=== PATIENT | female | born 1985 | race Caucasian/White ===

== ENCOUNTER 2017-02-28 07:53 | Inpatient (IN) | payer BC ==
[2017-02-28] MEDS ORDERED: Sodium Chloride 0.9% 2.5 ML Syringe FLUSH PRN (11:43)
[2017-02-28] MEDS ORDERED: Water For Irrigation,Sterile 1,000 ML Container IRR PRN (11:43)
[2017-02-28] MEDS ORDERED: Misoprostol 200 MCG Tab PO PRN (11:43)
[2017-02-28] MEDS ORDERED: Lidocaine 1% 50 ML MDV INJECT PRN (11:43)
[2017-02-28] MEDS ORDERED: Methylergonovine 0.2 MG/1 ML Amp IM PRN (11:43)
[2017-02-28] MEDS ORDERED: Sodium Chloride 0.9% 10 ML Syringe FLUSH PRN (11:43)
[2017-02-28] MEDS ORDERED: Nalbuphine 10 MG/1 ML Vial IVPUSH PRN (11:43)
[2017-02-28] MEDS ORDERED: Butorphanol 1 MG/ML SDV IVPUSH PRN (11:43)
[2017-02-28] MEDS ORDERED: Carboprost Tromethamine 250 MCG/1 ML Amp IM PRN (11:43)
[2017-02-28] MEDS ORDERED: Oxytocin/Lactated Ringers 30 UNIT/500 ML BAG IV SCH (11:45)
[2017-02-28] MEDS ORDERED: fentaNYL 100 MCG/2 ML SDV ONE (12:00)
[2017-02-28] MEDS: Lactated Ringers 1,000 ML IV SCH ×2 (12:00→12:44)
[2017-02-28] MEDS ORDERED: Ropivacaine 0.2% 2 MG/ML 20 ML SDV ONE (12:01)
--- NOTE | 2017-02-28 12:41 | PCM.PREANE ---
Preanesthetic Assessment - Anesthesia/Transfusion/Family Hx Anesthesia History: No Prior Anesthesia Family History of Anesthesia Reaction: No (Mom had trouble waking up) Transfusion History: No Prior Transfusion(s) - Review of Systems General: No Symptoms Pulmonary: No Symptoms Cardiovascular: No Symptoms Gastrointestinal: No symptoms Neurological: No Symptoms Other: Reports: None - Physical Assessment Height: 1.57 m Weight: 81.647 kg ASA Class: 2 Mental Status: Alert & Oriented x3 Airway Class: Mallampati = 2 Dentition: Reports: Normal Dentition ROM/Head Extension: Full - Lab Values: Laboratory Last Values WBC 13.72 K/uL (4.0-11.0) H 02/28/17 11:55 RBC 4.44 M/uL (4.30-5.90) 02/28/17 11:55 Hgb 12.1 g/dL (12.0-16.0) 02/28/17 11:55 Hct 35.8 % (36.0-46.0) L 02/28/17 11:55 MCV 80.6 fL (80.0-98.0) 02/28/17 11:55 MCH 27.3 pg (27.0-32.0) 02/28/17 11:55 MCHC 33.8 g/dL (31.0-37.0) 02/28/17 11:55 RDW Std Deviation 43.9 fl (28.0-62.0) 02/28/17 11:55 RDW Coeff of Matilda 15 % (11.0-15.0) 02/28/17 11:55 Plt Count 137 K/uL (150-400) L 02/28/17 11:55 MPV 11.40 fL (7.40-12.00) 02/28/17 11:55 Nucleated RBC % 0.0 /100WBC 02/28/17 11:55 Nucleated RBCs # 0 K/uL 02/28/17 11:55 Urine Color YELLOW 02/28/17 08:20 Urine Appearance CLEAR 02/28/17 08:20 Urine pH 7.0 (5.0-8.0) 02/28/17 08:20 Ur Specific [place] 1.025 (1.001-1.035) 02/28/17 08:20 Urine Protein TRACE mg/dL (NEGATIVE) 02/28/17 08:20 Urine Glucose (UA) NEGATIVE mg/dL (NEGATIVE) 02/28/17 08:20 Urine Ketones NEGATIVE mg/dL (NEGATIVE) 02/28/17 08:20 Urine Occult Blood LARGE (NEGATIVE) H 02/28/17 08:20 Urine Nitrite NEGATIVE (NEGATIVE) 02/28/17 08:20 Urine Bilirubin NEGATIVE (NEGATIVE) 02/28/17 08:20 Urine Urobilinogen 0.2 EU/dL (<2.0) 02/28/17 08:20 Ur Leukocyte Esterase MODERATE (NEGATIVE) 02/28/17 08:20 - Allergies Allergies/Adverse Reactions: Allergies Allergy/AdvReac Type Severity Reaction Status Date / Time Penicillins Allergy Bronchospas Verified 09/28/14 11:18 ms - Acknowledgements Anesthesia Type Planned: Epidural Pt an Appropriate Candidate for the Planned Anesthesia: Yes Alternatives and Risks of Anesthesia Discussed w Pt/Guardian: Yes Pt/Guardian Understands and Agrees with Anesthesia Plan: Yes PreAnesthesia Questionnaire - Past Health History Medical/Surgical History: Denies Medical/Surgical History [employer] History: Reports: Psychiatric History: Reports: Other (See Below) Other Psychiatric History: post depression Hematologic History: Reports: None (Denies any personal or family hx of bleeding or clotting problems) - Past Surgical History HEENT Surgical History: Reports: Oral Surgery ([place] teeth) - SUBSTANCE USE Smoking Status *Q: Never Smoker Second Hand Smoke Exposure: No Recreational Drug Use History: No - CURRENT (IN HOUSE) MEDS Current Meds: Current Medications Butorphanol Tartrate (Stadol) 1 mg IVPUSH Q1H PRN PRN Reason: Pain Carboprost Tromethamine (Hemabate Ds) 250 mcg IM ASDIRECTED PRN PRN Reason: Post Hemorrhage Lactated Ringer's (Ringers, Lactated) 1,000 mls @ 150 mls/hr IV ASDIRECTED KRISHNA Last Admin: 02/28/17 12:00 Dose: 150 mls/hr Oxytocin/Lactated Ringer's (Pitocin In Lr 30 Units/500 Ml) 30 unit in 500 mls @ 500 mls/hr IV TITRATE KRISHNA; 500 MUNITS/MIN PRN Reason: Protocol Stop: 02/28/17 12:44 Lidocaine HCl (Xylocaine 1%) 50 ml INJECT .ONCE PRN PRN Reason: Laceration repair Methylergonovine Maleate (Methergine) 0.2 mg IM ASDIRECTED PRN PRN Reason: Post Hemorrhage Misoprostol (Cytotec) 200 mcg PO .ONCE PRN PRN Reason: Post Hemorrhage Nalbuphine HCl (Nubain) 10 mg IVPUSH Q1H PRN PRN Reason: Pain (severe 7-10) Stop: 02/28/17 13:44 Sodium Chloride (Saline Flush) 10 ml FLUSH ASDIRECTED PRN PRN Reason: Keep Vein Open Sodium Chloride (Saline Flush) 2.5 ml FLUSH ASDIRECTED PRN PRN Reason: Keep Vein Open Sterile Water (Sterile Water For Irrigation) 1,000 ml IRR ASDIRECTED PRN PRN Reason: delivery Discontinued Medications Fentanyl (Sublimaze) Confirm Administered Dose 100 mcg .ROUTE .STK-MED ONE Stop: 02/28/17 12:01 Ropivacaine/Fentanyl/NS (Fentanyl 2 Mcg-Ropiv 0.2%-Ns) Confirm Administered Dose 100 mls @ as directed .ROUTE .STK-MED ONE Stop: 02/28/17 12:01 Ropivacaine (Naropin 0.2%) Confirm Administered Dose 20 ml .ROUTE .STK-MED ONE Stop: 02/28/17 12:02
[2017-02-28] MEDS ORDERED: Oxytocin/Lactated Ringers 30 UNIT/500 ML BAG ONE (15:23)
[2017-02-28] MEDS ORDERED: Docusate Sodium 100 MG Cap PO PRN (17:39)
[2017-02-28] MEDS ORDERED: oxyCODONE 5 MG Tab PO PRN (17:39)
[2017-02-28] MEDS ORDERED: Lanolin 100% Cream 7 GM Tube TOP PRN (17:39)
[2017-02-28] MEDS ORDERED: Benzocaine/Menthol 20%-0.5% Spray 78 GM Cannister TOP PRN (17:39)
[2017-02-28] MEDS ORDERED: Bisacodyl 10 MG Supp RECTAL PRN (17:39)
[2017-02-28] MEDS ORDERED: Witch Hazel Medicated Pads 40/Jar TOP PRN (17:39)
[2017-02-28] MEDS ORDERED: Acetaminophen 500 MG Tab PO PRN (17:39)
--- NOTE | 2017-02-28 22:40 | OR ---
SURGEON: Fanny Mehta DATE OF PROCEDURE: 02/28/2017 PREDELIVERY HISTORY: This is a 31-year-old, G2, P1, who presented to Labor and Delivery with complaints of progressing uterine contractions. On initial presentation, patient was noted to be 4-5 cm dilated, approximately 70% effaced, and -2 station. heart tracing was significant for category 1 tracing after prolonged monitoring. The patient was noted to be essence regularly. The patient made slow progressive cervical change, but the patient was finally admitted after spontaneous rupture of membranes for clear fluid, and at this time, the patient was noted to be 6 cm dilated. The patient quickly became uncomfortable and received epidural for analgesia during the labor and delivery process. The patient eventually progressed to complete status and started maternal expulsive efforts. PREOPERATIVE DIAGNOSES: 1. Intrauterine at 38 weeks and 6 days. 2. GBS negative. 3. Active labor. POSTOPERATIVE DIAGNOSES: 1. Intrauterine at 38 weeks and 6 days. 2. Delivered status. 3. Bleeding cervical vessel. PROCEDURE PERFORMED: 1. Spontaneous-assisted vaginal delivery. 2. Over-sew bleeding cervical vessel. ATTENDING: Dr. Fanny Mehta. ANESTHESIA: Epidural. ESTIMATED BLOOD LOSS: 200 mL. FINDINGS: Viable female in vertex presentation with score of 9 and 9 at 1 and 5 minutes respectively. Weight of 3880 g. Normal intact placenta with 3-vessel cord. Intact perineum. Bleeding cervical vessel. SPECIMEN REMOVED: Placenta. CONDITION: Postoperatively, the patient and tolerated the procedure well. COMPLICATIONS: None known. DESCRIPTION OF PROCEDURE: This female under epidural anesthesia delivered a viable female infant, with score of 9 and 9 at 1 and 5 minutes respectively. Weight of 3880 g. Delivery was via spontaneous assisted vaginal delivery with infant in vertex presentation. Upon delivery of infant vertex, the neck was checked. There was no nuchal to be reduced, and with gentle downward traction, the anterior shoulder spontaneously delivered followed by body. The was vigorous at delivery. The infant was bulb suctioned and placed directly on mom's abdomen at maternal request. Cord was doubly clamped and cut and cord blood was collected and sent for analysis. IV Pitocin was given as uterotonic to prevent excessive maternal blood loss and to help expel the placenta. After signs of placental separation of gush of blood, the uterine fundus was massaged and on traction on the umbilical cord. The lower portion of the placenta was massaged internally to affect release. A normal intact placenta with 3-vessel cord was delivered. With nurses aggressive fundal massage, there was a bleeding cervical vessel that was noted with descent of the cervix. This was isolated with a ring forceps and a 3-0 Vicryl suture and a [id number] suture was used to bring the bleeding vessel to hemostasis. Afterwards, hemostasis was noted to be excellent. The patient had normal lochia at this point in time. The lower uterine segment was cleared of all clots and debris. The patient was cleansed, pads were changed, and the bed was returned to functioning status. The patient and tolerated the procedure well. Sponge, lap, needle, and instrument counts were correct. LEXIE / CATHY /[id number] ALTAGRACIA
[2017-03-01] MEDS: Ibuprofen 800 MG Tab PO PRN ×2 (04:18→14:04)
--- NOTE | 2017-03-01 08:37 | PCM.PNPP ---
- General Info Date of Service: 03/01/17 Functional Status: Reports: pain controlled, tolerating diet, ambulating, urinating - Review of Systems General: Reports: No Symptoms HEENT: Reports: no symptoms Pulmonary: Reports: no symptoms Cardiovascular: Reports: No Symptoms Gastrointestinal: Reports: No symptoms, [place] Genitourinary: Reports: no symptoms Musculoskeletal: Reports: no symptoms Skin: Reports: no symptoms Neurological: Reports: No Symptoms Psychiatric: Reports: no symptoms - General Info Date of Service: 03/01/17 - Patient Data Vital Signs - most recent: Last Vital Signs Temp 36.6 C 03/01/17 04:00 Pulse 98 03/01/17 04:00 Resp 12 03/01/17 04:00 BP 117/73 03/01/17 04:00 Pulse Ox 97 03/01/17 04:00 Weight - most recent: 81.647 kg Lab Results - last 24 hrs: Laboratory Results - last 24 hr 02/28/17 02/28/17 02/28/17 Range/Units 08:20 11:55 11:55 WBC 13.72 H (4.0-11.0) K/uL RBC 4.44 (4.30-5.90) M/uL Hgb 12.1 (12.0-16.0) g/dL Hct 35.8 L (36.0-46.0) % MCV 80.6 (80.0-98.0) fL MCH 27.3 (27.0-32.0) pg MCHC 33.8 (31.0-37.0) g/dL RDW Std Deviation 43.9 (28.0-62.0) fl RDW Coeff of Matilda 15 (11.0-15.0) % Plt Count 137 L (150-400) K/uL MPV 11.40 (7.40-12.00) fL Nucleated RBC % 0.0 /100WBC Nucleated RBCs # 0 K/uL Urine Color YELLOW Urine Appearance CLEAR Urine pH 7.0 (5.0-8.0) Ur Specific [place] 1.025 (1.001-1.035) Urine Protein TRACE (NEGATIVE) mg/dL Urine Glucose (UA) NEGATIVE (NEGATIVE) mg/dL Urine Ketones NEGATIVE (NEGATIVE) mg/dL Urine Occult Blood LARGE H (NEGATIVE) Urine Nitrite NEGATIVE (NEGATIVE) Urine Bilirubin NEGATIVE (NEGATIVE) Urine Urobilinogen 0.2 (<2.0) EU/dL Ur Leukocyte Esterase MODERATE (NEGATIVE) Blood Type O NEGATIVE Antibody Screen NEGATIVE 03/01/17 Range/Units 05:59 WBC (4.0-11.0) K/uL RBC (4.30-5.90) M/uL Hgb 10.0 L (12.0-16.0) g/dL Hct 30.8 L (36.0-46.0) % MCV (80.0-98.0) fL MCH (27.0-32.0) pg MCHC (31.0-37.0) g/dL RDW Std Deviation (28.0-62.0) fl RDW Coeff of Matilda (11.0-15.0) % Plt Count (150-400) K/uL MPV (7.40-12.00) fL Nucleated RBC % /100WBC Nucleated RBCs # K/uL Urine Color Urine Appearance Urine pH (5.0-8.0) Ur Specific [place] (1.001-1.035) Urine Protein (NEGATIVE) mg/dL Urine Glucose (UA) (NEGATIVE) mg/dL Urine Ketones (NEGATIVE) mg/dL Urine Occult Blood (NEGATIVE) Urine Nitrite (NEGATIVE) Urine Bilirubin (NEGATIVE) Urine Urobilinogen (<2.0) EU/dL Ur Leukocyte Esterase (NEGATIVE) Blood Type Antibody Screen Med Orders - Current: Current Medications Acetaminophen (Tylenol Extra Strength) 500 mg PO Q4H PRN PRN Reason: Pain Benzocaine/Menthol (Dermoplast Pain Relief 20%-0.5% [place]) 78 gm TOP ASDIRECTED PRN PRN Reason: Perineal Comfort Measure Bisacodyl (Dulcolax) 10 mg RECTAL .ONCE PRN PRN Reason: Constipation Butorphanol Tartrate (Stadol) 1 mg IVPUSH Q1H PRN PRN Reason: Pain Carboprost Tromethamine (Hemabate Ds) 250 mcg IM ASDIRECTED PRN PRN Reason: Post Hemorrhage Docusate Sodium (Colace) 100 mg PO BID PRN PRN Reason: Constipation Emollient Ointment (Lansinoh Hpa) 0 gm TOP ASDIRECTED PRN PRN Reason: Sore Nipples Lactated Ringer's (Ringers, Lactated) 1,000 mls @ 150 mls/hr IV ASDIRECTED KRISHNA Last Admin: 02/28/17 12:44 Dose: 150 mls/hr Ibuprofen (Motrin) 800 mg PO Q6H PRN PRN Reason: Pain Last Admin: 03/01/17 04:18 Dose: 800 mg Lidocaine HCl (Xylocaine 1%) 50 ml INJECT .ONCE PRN PRN Reason: Laceration repair Measles/Mumps/Rubella Vaccine Live (M-M-R Ii Vaccine) 0.5 ml SUBCUT .ONCE ONE Stop: 03/01/17 08:35 Methylergonovine Maleate (Methergine) 0.2 mg IM ASDIRECTED PRN PRN Reason: Post Hemorrhage Misoprostol (Cytotec) 200 mcg PO .ONCE PRN PRN Reason: Post Hemorrhage Oxycodone HCl (Oxycodone) 5 mg PO Q2H PRN PRN Reason: Pain Sodium Chloride (Saline Flush) 10 ml FLUSH ASDIRECTED PRN PRN Reason: Keep Vein Open Sodium Chloride (Saline Flush) 2.5 ml FLUSH ASDIRECTED PRN PRN Reason: Keep Vein Open Sterile Water (Sterile Water For Irrigation) 1,000 ml IRR ASDIRECTED PRN PRN Reason: delivery Last Admin: 02/28/17 17:51 Dose: 1,000 ml Witch Dianne (Tucks) 1 pad TOP ASDIRECTED PRN PRN Reason: comfort care Discontinued Medications Fentanyl (Sublimaze) Confirm Administered Dose 100 mcg .ROUTE .STK-MED ONE Stop: 02/28/17 12:01 Oxytocin/Lactated Ringer's (Pitocin In Lr 30 Units/500 Ml) 30 unit in 500 mls @ 500 mls/hr IV TITRATE KRISHNA; 500 MUNITS/MIN PRN Reason: Protocol Stop: 02/28/17 12:44 Last Admin: 02/28/17 17:00 Dose: 500 munits/min, 500 mls/hr Ropivacaine/Fentanyl/NS (Fentanyl 2 Mcg-Ropiv 0.2%-Ns) Confirm Administered Dose 100 mls @ as directed .ROUTE .STK-MED ONE Stop: 02/28/17 12:01 Oxytocin/Lactated Ringer's (Pitocin In Lr 30 Units/500 Ml) Confirm Administered Dose 30 unit in 500 mls @ as directed .ROUTE .STK-MED ONE Stop: 02/28/17 15:24 Nalbuphine HCl (Nubain) 10 mg IVPUSH Q1H PRN PRN Reason: Pain (severe 7-10) Stop: 02/28/17 13:44 Ropivacaine (Naropin 0.2%) Confirm Administered Dose 20 ml .ROUTE .STK-MED ONE Stop: 02/28/17 12:02 - Infant Interaction Infant Disposition, : [place] in Room with Family Interaction: Holding Infant Feeding: Breastfed ; Nursed Well Support Person: - Recovery Exam Fundal Tone: Firm Fundal Level: 1 Fingerbreadths Below Umbilicus Fundal Placement: Midline Lochia Amount: Scant, Small Perineum Description: Intact, Minimal Bruising/Swelling Episiotomy/Laceration: None Bladder Status: Voiding Urinary Elimination: Voided - Exam General: alert, oriented Neck: supple Lungs: Clear to auscultation, Normal respiratory effort Abdomen: bowel sounds present, soft, no tenderness Extremities: no calf tenderness Skin: warm, dry, intact Neurological: no new focal deficit Psy/Mental Status: alert, normal affect, normal mood - Problem List & Annotations (1) Vaginal delivery SNOMED Code(s): 654488384 Code(s): O80 - ENCOUNTER FOR FULL-TERM UNCOMPLICATED DELIVERY Status: Acute Current Visit: Yes - Problem List Review Problem List Initiated/Reviewed/Updated: Yes - My Orders Last 24 Hours: My Active Orders 02/28/17 08:00 Up ad Mena [RC] ASDIRECTED Vital Signs [RC] PER UNIT ROUTINE Resuscitation Status Routine 02/28/17 11:43 May Shower [RC] ASDIRECTED Notify Provider [RC] PRN Butorphanol [Stadol] 1 mg IVPUSH Q1H PRN Carboprost Tromethamine [Hemabate DS] 250 mcg IM ASDIRECTED PRN Lidocaine 1% [Xylocaine 1%] 50 ml INJECT .ONCE PRN Methylergonovine [Methergine] 0.2 mg IM ASDIRECTED PRN Misoprostol [Cytotec] 200 mcg PO .ONCE PRN Sodium Chloride 0.9% [Saline Flush] 10 ml FLUSH ASDIRECTED PRN Sodium Chloride 0.9% [Saline Flush] 2.5 ml FLUSH ASDIRECTED PRN Water For Irrigation,Sterile [Sterile Water for Irrigation] 1,000 ml IRR ASDIRECTED PRN Scalp Electrode [WOMSER] Per Unit Routine Peripheral IV Insertion Adult [OM.PC] Routine 02/28/17 11:45 Lactated Ringers [Ringers, Lactated] 1,000 ml IV ASDIRECTED 02/28/17 17:39 Patient Status [ADT] Routine May Shower [RC] ASDIRECTED Up ad Mena [RC] ASDIRECTED Vital Signs [RC] PER UNIT ROUTINE Acetaminophen [Tylenol Extra Strength] 500 mg PO Q4H PRN Benzocaine/Menthol [Dermoplast Pain Relief 20%-0.5% [place]] 78 gm TOP ASDIRECTED PRN Bisacodyl [Dulcolax] 10 mg RECTAL .ONCE PRN Docusate Sodium [Colace] 100 mg PO BID PRN Ibuprofen [Motrin] 800 mg PO Q6H PRN Lanolin [Lansinoh HPA] See Dose Instructions TOP ASDIRECTED PRN Witch Dianne [Tucks] 1 pad TOP ASDIRECTED PRN oxyCODONE 5 mg PO Q2H PRN Assess Lochia [WOMSER] Per Unit Routine Assess Uterine Involution [WOMSER] Per Unit Routine Peripheral IV Discontinue [OM.PC] Routine 02/28/17 17:40 Ice Therapy [OM.PC] Per Unit Routine Perineal Care [OM.PC] Per Unit Routine Sitz Bath [OM.PC] Per Unit Routine 02/28/17 Dinner Regular Diet [DIET] 03/01/17 08:34 Measles, Mumps & Rubella [M-M-R II Vaccine] 0.5 ml SUBCUT .ONCE ONE 03/01/17 08:35 Vaccines to be Administered [RC] PER UNIT ROUTINE 03/01/17 15:30 Ready for Discharge [RC] PER UNIT ROUTINE - Assessment Assessment:: PPD#1 S/p SAVD Doing well Desires discharge home today - Plan Plan:: Discharge home today Pelvic rest for 6wks Call for increased heavy bleeding of > 1pad per hr Call for temp. >100.4 x 2 Thromboembolic precautions given blues/depression precautions given
[2017-03-01] MEDS ORDERED: Measles, Mumps & Rubella Vaccine 0.5 ML SDV SUBCUT ONE (16:00)
--- NOTE | 2017-03-01 19:26 | PCM48HPAN ---
Post Anesthesia Note - EVALUATION WITHIN 48HRS OF ANESTHETIC Vital Signs in Normal Range: Yes Patient Participated in Evaluation: Yes Respiratory Function Stable: Yes Airway Patent: Yes Cardiovascular Function Stable: Yes Hydration Status Stable: Yes Pain Control Satisfactory: Yes Nausea and Vomiting Control Satisfactory: Yes Mental Status Recovered: Yes
[2017-03-01 20:06] VITALS: BP 118/78
== END 2017-03-01 20:10 | disposition home or self-care (01) | DRG 542 ==
LOC: MW.OBCHECK 07:53 → MW.OB 07:54 → MW.OBCHECK 11:43 → OBSVTOIN 16:58
PROVIDERS: ADMIT Obstetrics & Gynecology; ATTEND Obstetrics & Gynecology
PROC: 10E0XZZ Delivery of Products of Conception, External Approach (ICD-10-PCS; principal; 2017-02-28)
PROC: 0UQC7ZZ Repair Cervix, Via Natural or Artificial Opening (ICD-10-PCS; 2017-02-28)
PROC: 00HU33Z Insertion of Infusion Device into Spinal Canal, Percutaneous Approach (ICD-10-PCS; 2017-02-28)
PROC: 3E0R3CZ (ICD-10-PCS; 2017-02-28)
DX: O42.92 Full-term premature rupture of membranes, unspecified as to length of time between rupture and onset of labor (principal); Z3A.39 39 weeks gestation of pregnancy; Z37.0 Single live birth; O67.8 Other intrapartum hemorrhage
CPT/HCPCS: 01967; 36415; 59025; 81003; 85014; 85018; 85027; 86850; 86900; 86901; 90707; A9270-GY; J7120